=== PATIENT | female | born 1985 | race Caucasian/White ===

== ENCOUNTER 2018-10-01 16:23 | Inpatient (IN) | payer MEDICAID ==
[~2018-10-01] VITALS: Ht 134.6 cm; Wt 58.0 kg
[2018-10-01 16:40] VITALS: Ht 134.6 cm; Wt 58.0 kg
[2018-10-01] MEDS ORDERED: CARBOPROST 250 MCG INJ IM PRN ×2 (17:00→19:30)
[2018-10-01] MEDS ORDERED: OXYTOCIN 30 UNITS/LR 500 ML IV PRN ×2 (17:00→19:30)
[2018-10-01] MEDS ORDERED: MISOPROSTOL 200 MCG TAB PR PRN ×2 (17:00→19:30)
[2018-10-01] MEDS ORDERED: OXYTOCIN 30 UNITS/LR 500 ML IV SCH ×2 (17:00→19:25)
[2018-10-01] MEDS ORDERED: METHYLERGONOVINE 0.2 MG INJ IM PRN ×2 (17:00→19:30)
[2018-10-01] MEDS ORDERED: CEFAZOLIN 2 GM/50 ML (PMX) 50 ML IVPB SCH ×2 (17:00→19:30)
[2018-10-01] MEDS: LACTATED RINGER'S 1,000 ML IV SCH ×2 (17:13→17:46)
[2018-10-01 17:16] VITALS: BP 101/72; PULSE 84; RESP 18
--- NOTE | 2018-10-01 18:00 | PREAC ---
Date/Time of Note Date/Time of Note DATE: 10/01/18 TIME: 17:58 Anesthesia Eval and Record Evaluation Time Pre-Procedure Interview DATE: 10/01/18 TIME: 17:58 Age 32 Sex female NPO: 8 hrs Preoperative diagnosis repeat c section Planned procedure c section Past Medical History Past Medical History: Includes Endo: Diabetes : : (2) Surgery & Anesthesia Issues No known issue Meds Anticoagulation: No Beta Soy within 24 hr: No Reason Beta Soy not given: Pt. not on B-Soy Current Medications Lactated Ringer's 1,000 ml @ 125 mls/hr Q8H IV Last administered on 10/01/18at 17:46; Admin Dose 125 MLS/HR; Start 10/01/18 at 16:41 Cefazolin Sodium/ Dextrose 50 ml @ 100 mls/hr ONCE IVPB ; Start 10/01/18 at 17:00 Oxytocin/Lactated Ringer's 500 ml @ 125 mls/hr POST IV ; Start 10/01/18 at 17:00 Oxytocin/Lactated Ringer's 500 ml @ 0 mls/hr ONCE PRN IV .VAGINAL BLEEDING; Start 10/01/18 at 17:00 Methylergonovine Maleate (Methergine) 0.2 mg ONCE PRN IM .VAGINAL BLEEDING; Start 10/01/18 at 17:00 Carboprost Tromethamine (Hemabate) 250 mcg ONCE PRN IM .VAGINAL BLEEDING; Start 10/01/18 at 17:00 Misoprostol (Cytotec) 1,000 mcg ONCE PRN NV .VAGINAL BLEEDING; Start 10/01/18 at 17:00 Meds reviewed: Yes Allergies Coded Allergies: No Known Allergy (Unverified , 10/01/18) Allergies Reviewed: Yes Labs/Studies Labs Reviewed: Reviewed by anesthesiologist test: Positive Studies: ECG (n/a), CXR (n/a) Pre-procedure Exam Last vitals Vital Signs Date Temp Pulse Resp B/P (MAP) Pulse Ox O2 O2 Flow FiO2 Time Delivery Rate 10/01/18 98.0 84 18 101/72 99 Room Air 17:16 (82) Airway: Adequate mouth opening Mallampati: Mallampati I Teeth: Normal Lung: Normal Heart: Normal ASA Physical Status ASA physical status: 2 Emergency: None Planned Anesthetic Neuraxial: Spinal Planned Pain Management Sub-arachniod narcotics Pre-operative Attestations Prior to commencing anesthesia and surgery, the patient was re-evaluated, there was verification of: *The patient's identity *The results of appropriate recent lab work and preoperative vital signs *The above evaluation not changing prior to induction *Anesthetic plan, risk benefits, alternative and complications discussed with patient/family; questions answered; patient/family understands, accepts and wishes to proceed. SUNIL RG MD Oct 01, 2018 18:00
[2018-10-01] MEDS ORDERED: CITRIC ACID/NA CITRATE 30 ML CUP ONE (18:14)
[2018-10-01] MEDS ORDERED: ONDANSETRON 4 MG INJ ONE (18:21)
[2018-10-01] MEDS ORDERED: OXYTOCIN 30 UNITS/LR 500 ML IV ONE (18:21)
[2018-10-01] MEDS ORDERED: morphine SULFATE/PF (10 MG/10 ML) INJ ONE (18:21)
[2018-10-01] MEDS ORDERED: METOCLOPRAMIDE 10 MG INJ ONE (18:21)
[2018-10-01] MEDS ORDERED: KETOROLAC 30 MG INJ ONE (18:22)
[2018-10-01] MEDS ORDERED: CITRIC ACID/NA CITRATE 30 ML CUP PO ONE (18:30)
[2018-10-01] MEDS ORDERED: EPHEDrine SULFATE 50 MG/5 ML SYG ONE (18:36)
--- NOTE | 2018-10-01 18:37 | PREOPHP ---
DATE OF ADMISSION: 10/01/2018 HISTORY OF PRESENT ILLNESS: Ms. Vita Cook is a 32-year-old 2, para 1, EDC of 10/06/2018, intrauterine at 39 weeks' gestational age, admitted today for elective repeat [facility]. She denies any contractions, vaginal bleeding or discharge. She has a history of GDM A1; how ever, had been noncompliant with her care and diabetic clinic. Her care took place at [facility]. PAST MEDICAL HISTORY: GDM A1/noncompliant. MEDICATIONS: vitamins. PAST SURGICAL HISTORY: x1 previous section. OBSTETRIC HISTORY: x1 previous section. GYNECOLOGIC HISTORY: 12, regular 3 to 4 days. Denies any sexually transmitted infections. Sexually active with 1 partner. SOCIAL HISTORY: Denies any smoking, drugs or alcohol. FAMILY HISTORY: None. REVIEW OF SYSTEMS: All within normal except history of present illness. PHYSICAL EXAMINATION: HEENT: Within normal. LUNGS: CTA bilateral. CARDIOVASCULAR: S1, S2. Regular rate, rhythm. ABDOMEN: Gravid, nontender. Negative CVA bilateral. EXTREMITIES: Negative. No calf tenderness. PELVIC: Vaginal exam is deferred. heart tracing category 1. ASSESSMENT: 1. A 32-year-old 2, para 1, intrauterine at 39 weeks' gestational age. 2. Previous section x1. 3. Gestational diabetes mellitus A1/noncompliant. 4. Desires elective repeat delivery. 5. Declined vaginal after . PLAN: Consent for repeat delivery. Risks, benefits and alternatives were explained. All q uestions were answered. Dictated By: DALTON LAGUNA/MENA Conf#: [id number] DID#: [id number]
--- NOTE | 2018-10-01 19:25 | OPPN ---
Date/Time of Note Date/Time of Note DATE: 10/01/18 TIME: 19:23 Operative Report Planned Procedure Procedure date Oct 01, 2018 Procedure(s) repeat low transverse CD Performed by see signature line Change Lead: NAINA PEREZ M.D. 2nd Change Lead none Anesthesiologist: SUNIL RG MD Pre-procedure diagnosis 1. A 32-year-old 2, para 1, intrauterine at 39 weeks' gestational age. 2. Previous section x1. 3. Gestational diabetes mellitus A1/noncompliant. 4. Desires elective repeat delivery. 5. Declined vaginal after . [id number] Anesthesia Type: [id number] spinal Post-Procedure Post-procedure diagnosis same Findings a viable male, 8/9, weight 6lb 8oz, normal uterus tubes and ovaries Estimated Blood Loss: 500 - 600 mls (500) Specimen(s) none Grafts/Implant(s) none Complication(s) none DALTON WAYNE MD Oct 01, 2018 19:25
[2018-10-01] MEDS ORDERED: NACL 0.9% 3 ML SYG IV SCH (19:30)
[2018-10-01] MEDS ORDERED: LANOLIN HPA 1 PKT TOP PRN (19:30)
[2018-10-01] MEDS ORDERED: OXYCODONE/ACETAMINOPHEN (5/325) TAB PO PRN ×2 (19:30)
[2018-10-01] MEDS: ACCU-CHEK XX SCH (19:35)
--- NOTE | 2018-10-01 19:39 | PAC ---
Date/Time of Note Date/Time of Note DATE: 10/01/18 TIME: 19:39 Post-Anesthesia Notes Post-Anesthesia Note Last documented vital signs Vital Signs Date Temp Pulse Resp B/P (MAP) Pulse Ox O2 O2 Flow FiO2 Time Delivery Rate 10/01/18 98.0 84 18 99/52 99 Room Air 20:16 Activity: WNL Respiratory function: WNL Cardiovascular function: WNL Mental status: Baseline Pain reasonably controlled: Yes Hydration appropriate: Yes Nausea/Vomiting absent: No SUNIL RG MD Oct 01, 2018 19:39
[2018-10-01] MEDS: SENNA/DOCUSATE NA (8.6MG/50MG) TAB PO SCH (21:00)
[2018-10-01 22:00] VITALS: BP 113/71; PULSE 93; RESP 20
[2018-10-02] VITALS: BP 112/73; PULSE 105; RESP 18
[2018-10-02] MEDS ORDERED: ONDANSETRON 4 MG INJ IV PRN
[2018-10-02] MEDS ORDERED: DIPHENHYDRAMINE 50 MG INJ IV PRN
[2018-10-02] MEDS ORDERED: morphine 2 MG INJ IV PRN ×3
[2018-10-02] MEDS ORDERED: NALOXONE (0.4 MG/ML) INJ IV PRN
[2018-10-02] MEDS ORDERED: KETOROLAC 30 MG INJ IV PRN
[2018-10-02 04:00] VITALS: BP 101/67; PULSE 88; RESP 20
[2018-10-02] MEDS: ACCU-CHEK XX SCH ×4 (07:30→20:05)
[2018-10-02] MEDS: CEFAZOLIN 2 GM/50 ML (PMX) 50 ML IVPB SCH ×2 (07:50→15:23)
[2018-10-02 08:00] VITALS: BP 104/68; PULSE 88; RESP 17
--- NOTE | 2018-10-02 08:05 | OPR ---
DATE OF OPERATION: 10/01/2018 PREOPERATIVE DIAGNOSES: Intrauterine at 39 weeks gestational age, previous delive ry, GDM A1/noncompliant. POSTOPERATIVE DIAGNOSES: Intrauterine at 39 weeks gestational age, previous deliv gabriella, GDM A1/noncompliant. OPERATION PERFORMED: Repeat low transverse delivery. SURGEON: Hugh Wayne M.D. CHEMICAL HANDLER: Elroy Wiggins M.D. ANESTHESIA: Spinal. COMPLICATIONS: None. ESTIMATED BLOOD LOSS: 500 mL. FINDINGS: A viable male, 8 and 9 respectively at 1 and 5 minutes, weight 6 pounds 8 ounces. N ormal uterus, tubes and ovaries. DESCRIPTION OF PROCEDURE: After explaining the risks, benefits and alternatives to the patient and c onsent signed in chart, the patient was taken to the operating room where spinal anesthesia was obtai patrick without difficulty and found to be adequate. She was then prepared and draped in the normal ster ile fashion in dorsal supine position with a leftward tilt. A Pfannenstiel skin incision was then ma de with a scalpel and carried to the underlying of the fascia. The fascia was incised in the midline and incision was extended laterally with Lal scissors. The superior aspect of the fascial incision was grasped with curved clamps, elevated and the underlying rectus muscles dissected off bluntly. A ttention was then turned to the inferior aspect of incision, which in similar fashion was grasped, te nted up with curved clamps and the rectus muscles were dissected off bluntly. The rectus muscles wer e in midline, peritoneum identified, entered into sharply with Metzenbaum scissors. The pe ritoneal incision was extended superiorly and inferiorly with good visualization of bladder. The cathleen dder blade was then inserted and the vesicouterine peritoneum identified, grasped with pickups and sh arply with Metzenbaum scissors. This incision was extended laterally and a bladder flap created digi tally. The bladder blade was then reinserted and lower segment incised in transverse fashion with th e scalpel. The uterine incision was extended laterally. The bladder blade was removed and the infan t's head delivered atraumatically. The nose and mouth were suctioned and cord clamped and cut. The was handed off to awaiting o and m supervisor. The placenta was then removed. The uterus externall y cleared of all clots and debris. The uterine incision was repaired with 1-0 chromic in a running l ocked fashion. A second layer of same suture was used for imbrication obtaining excellent hemostasis . The uterus was returned to the abdomen. The gutters were cleared off all clots. The peritoneum a nd rectus abdominis muscles reapproximated with 3-0 Vicryl in interrupted fashion. The fascia was re approximated with 0 Vicryl in a running fashion. The subcutaneous tissue was closed with absorbable leila. The patient tolerated procedure well. All counts were correct. The patient was taken to r ecovery room in stable condition. Dictated By: HUGH LAGUNA/MENA Conf#: [id number] DID#: [id number] CC: HUGH WAYNE MD;*EndCC*
--- NOTE | 2018-10-02 08:31 | OPPN ---
Date/Time of Note Date/Time of Note DATE: 10/02/18 TIME: 08:30 Anesthesia Follow up Anesthesia Follow up Last documented vital signs Vital Signs Date Temp Pulse Resp B/P (MAP) Pulse Ox O2 O2 Flow FiO2 Time Delivery Rate 10/02/18 98.1 88 20 101/67 97 Room Air 04:00 (78) Respiratory function: WNL Cardiovascular function: WNL Comments A 32 year female s/p spinal with duramorph for post op pain POD#1 is doing fine. No pain, itching, N/V, headache, neural deficit. care per surgery SUNIL RG MD Oct 02, 2018 08:31
[2018-10-02] MEDS: SENNA/DOCUSATE NA (8.6MG/50MG) TAB PO SCH ×2 (09:06→23:12)
[2018-10-02 12:00] VITALS: BP 97/66; PULSE 94; RESP 18
--- NOTE | 2018-10-02 12:58 | QN ---
Documentation Comment progress note pod 1 patient seen and evaluated no complaints vs stable afebrile guerrero clear ab soft nt no distention dressing clean/dry extremity no edema no calf tenderness a/ sp cd pod 1 stable afebrile elevated wbc p/ repeat cbc in am encourage ambulation DALTON WAYNE MD Oct 02, 2018 12:58
[2018-10-02] MEDS: LACTATED RINGER'S 1,000 ML IV SCH ×3 (13:09→21:09)
[2018-10-02] MEDS ORDERED: LACTATED RINGER'S 1,000 ML IV SCH (13:30)
[2018-10-02 16:00] VITALS: BP 92/63; PULSE 74; RESP 20
[2018-10-02 20:00] VITALS: BP 106/55; PULSE 89; RESP 18
[2018-10-02] MEDS: IBUPROFEN 600 MG TAB PO SCH (23:15)
[2018-10-03 04:00] VITALS: BP 93/68; PULSE 60; RESP 20
[2018-10-03] MEDS: IBUPROFEN 600 MG TAB PO SCH ×4 (06:25→23:35)
[2018-10-03 07:30] VITALS: BP 83/63; PULSE 56; RESP 17
[2018-10-03] MEDS: ACCU-CHEK XX SCH (07:30)
--- NOTE | 2018-10-03 07:51 | PD.PPDC ---
POWER AND RECOVERY SUPERINTENDENT Discharge Instruction Condition [id number] Patient Condition: Azvdk8m Good Diet Humvn1Fa Diet: Ulypp9j Resume Regular Diet Activity/Restrictions [id number] Activity: Djhwq7l Normal Activity May Shower [id number] Restrictions: Ppabm3d No Exercising No Lifting No Driving No Sexual Activity Nothing in the Vagina No [place] No Tampons, douche Follow-up Follow-up with Physician: 2, Week/Weeks Return to clinic for [id number] ADOLESCENT COUNSELOR Instructions: Ucmha7s Fever greater than 101 Chills Worsening abdominal pain Excessive Vaginal Bleeding More than 2 pads per hour Unable to tolerate diet [id number] OB Instructions: Zrwrk5w Breast Tenderness Depression Blurried Vision Headache [id number] Surgical Instructions: Cqkeg3h Incisional Drainage Incisional Redness DALTON WAYNE MD Oct 03, 2018 07:51
--- NOTE | 2018-10-03 07:51 | QN ---
Documentation Comment progress note pod 2 patient seen and evaluated no complaints vs stable afebrile ab soft nt c/d/i no distention extremity no edema no calf tenderness a/ sp cd pod 2 stable afebrile p/ f/u cbc results discharge home tomorrow DALTON WAYNE MD Oct 03, 2018 07:51
[2018-10-03] MEDS: SENNA/DOCUSATE NA (8.6MG/50MG) TAB PO SCH ×2 (10:05→21:12)
[2018-10-03 15:56] VITALS: BP 100/71; PULSE 69; RESP 16
[2018-10-03 19:10] VITALS: BP 103/68; PULSE 62; RESP 18
--- NOTE | 2018-10-04 01:43 | DS ---
DATE OF ADMISSION: 10/01/2018 DATE OF DISCHARGE: 10/04/2018 PRIMARY DIAGNOSES: 1. Intrauterine at 39 weeks gestational age 2. Previous delivery. 3. GDM A1. PROCEDURE: Repeat low transverse delivery. CONDITION ON DISCHARGE: Stable. ACTIVITY: None per vagina, no lifting x6 weeks. DIET: Regular. MEDICATIONS ON DISCHARGE: 1. Motrin. 2. Iron. 3. Colace. DISCHARGE SUMMARY: Ms. Vita Cook underwent a repeat delivery on 10/01/2018. She had a viable male, 8 and 9 respectively at 1 and 5 minutes, weight 6 pounds 8 ounces. She had an une ventful postop day 1 and 2. She was discharged on postop day 3. Her incision is clean, dry, and int act. She is ambulating, tolerating diet, positive flatulence, positive bowel movement. She will fol low up in the clinic in 2 weeks for /postop care. Dictated By: DALTON LAGUNA/MENA Conf#: [id number] DID#: [id number]
[2018-10-04 03:32] VITALS: BP 95/55; PULSE 60; RESP 18
[2018-10-04] MEDS: IBUPROFEN 600 MG TAB PO SCH ×3 (05:46→18:23)
[2018-10-04 08:00] VITALS: BP 89/56; PULSE 75; RESP 18
[2018-10-04] MEDS: SENNA/DOCUSATE NA (8.6MG/50MG) TAB PO SCH (09:25)
[2018-10-04 15:41] VITALS: BP 108/77; PULSE 67; RESP 20
[2018-10-04 16:00] VITALS: BP 111/71; PULSE 80; RESP 18
[2018-10-04 20:00] VITALS: BP 117/76; PULSE 65; RESP 20
[2018-10-04] MEDS ORDERED: PETROLATUM 5 GM OINT TOP ONE (20:18)
--- NOTE | 2018-10-05 23:29 | DELSUM ---
Delivery Summary A-C Datetime Report Generated by CPN: 10/05/2018 23:29 DELIVERY PERSONNEL Claim Professional: [place], [place] MATERNAL INFORMATION Delivery Anesthesia: Spinal Medications in Delivery: 2 GM ANCEF Delivery QBL (ml): 500 Placenta Cultured: No Maternal Complications: None LABOR SUMMARY EDC: 10/06/2018 00:00 No. Babies in Womb: 1 Attempted: No Labor Anesthesia: None LABOR INFORMATION Reason for Induction: Not Applicable Oxytocin: N/A Group B Beta Strep: Negative Antibiotics # of Doses: X1 2G ANCEF Steroids Given: None Reason Steroids Not Administered: Not Applicable MEMBRANES Membranes Rupture Method: Artificial Rupture of Membranes: 10/01/2018 18:52 Length of Rupture (hr): 0.02 Amniotic Fluid Color: Clear Amniotic Fluid Amount: Small Amniotic Fluid Odor: Normal STAGES OF LABOR Stage 3 hr: 0 Stage 3 min: 0 CSECTION DELIVERY Primary Indication: Repeat Elective CSection Urgency: Elective CSection Incidence: Repeat Labor: No Labor Elective: Elective CSection Incision: Lower Uterine Transverse BABY A INFORMATION Infant Delivery Date/Time: 10/01/2018 18:53 Method of Delivery: Born in Route : No : N/A Forceps: N/A Vacuum Extraction: N/A Shoulder Dystocia : N/A SHOULDER DYSTOCIA BABY A Infant Delivery Date/Time: 10/01/2018 18:53 PRESENTATION/POSITION BABY A Presentation: Cephalic Cephalic Presentation: Vertex Vertex Position: Left Occipital Anterior Breech Presentation: N/A PLACENTA INFORMATION BABY A Placenta Delivery Time : 10/01/2018 18:53 Placenta Method of Delivery: Manual Removal Placenta Status: Delivered SCORES BABY A Heart Rate 1 min: >100 bpm Resp Effort 1 min: Good Cry Reflex Irritability 1 min: Cough/Sneeze/Pulls Away Muscle Tone 1 min: Active Motion Color 1 min: Blue/Pale Resuscitation Effort 1 min: Tactile Stimulation SCORE 1 MIN: 8 Heart Rate 5 min: >100 bpm Resp Effort 5 min: Good Cry Reflex Irritability 5 min: Cough/Sneeze/Pulls Away Muscle Tone 5 min: Active Motion Color 5 min: Body [place], Extremit Blue Resuscitation Effort 5 min: Tactile Stimulation SCORE 5 MIN: 9 INFORMATION BABY A Gestational Age at Delivery: 39.2 Gestational Status: Full Term- 39- 40.6 Weeks Outcome : Liveborn Infant Condition : Stable Infant Sex: Male IDENTIFICATION/MEDS BABY A ID Band Number: [id number] ID Band Location: Right Leg; Left Arm Sensor Applied: Yes Sensor Number: [id number] Sensor Location : Cord Clamp Vitamin K Given : Not Given Erythromycin Given: Not Given WEIGHT/LENGTH BABY A Birthweight (gm): 2955 Weight (lb): 6 Weight (oz): 8 Length (in): 19.00 Infant Length (cm): 48.26 CORD INFORMATION BABY A No. Cord Vessels: 3 Nuchal Cord : N/A Cord Blood Taken: Yes Infant Suction: Mouth; Nose ASSESSMENT BABY A Complications: None Physical Findings at Delivery: Within Normal Limits Respirations: Appears Normal Air Quality Manager/ALS Called : Yes Care By: MARY Andujar Transferred To: Remains with Mother
== END 2018-10-04 21:20 | disposition home or self-care (01) | DRG 788 ==
LOC: L-D 16:23 → PP1 21:50
PROVIDERS: ADMIT Obstetrics & Gynecology; ATTEND Obstetrics & Gynecology
PROC: 10D00Z1 Extraction of Products of Conception, Low, Open Approach (ICD-10-PCS; principal; 2018-10-01 17:00)
DX: O24.420 Gestational diabetes mellitus in childbirth, diet controlled (principal); O34.219 Maternal care for unspecified type scar from previous cesarean delivery; Z3A.39 39 weeks gestation of pregnancy; Z37.0 Single live birth
CPT/HCPCS: 82962; 85025; 85610; 85730; 86592; 86850; 86900; 86901; 87340; 99464; J0690; J1200; J1885; J2210; J2274; J2405; J2590; J2765; J7120